=== PATIENT | female | born 1985 | race African-American/Black ===

== ENCOUNTER 2017-03-01 21:37 | Emergency (ER) | payer OTHER ==
[~2017-03-01] VITALS: Ht 160 cm; Wt 58.5 kg
[~2017-03-01 21:37] MED LIST: ALBUTEROL SULF8.5 GM INH; AZITHROMYCIN250 MG ORAL; CYCLOBENZAPRINE10 MG ORAL; IBUPROFEN600 MG ORAL; NAPROSYN500 M1 ORAL; NKM; PRENATAL ONE T1 EACH PO; PROMETHAZINE-C118 M1 ORAL
[2017-03-01 21:51] VITALS: BP 136/92
[2017-03-01] MEDS ORDERED: LACTULOSE20 GM/301 ORAL (22:20)
[2017-03-01 22:24] VITALS: BP 136/92
--- NOTE | 2017-03-04 10:08 | Emergency Room Report ---
History of Present Illness General Chief Complaint: Constipation Source: Patient Present Illness HPI Patient a 31-year-old female who presented after increased constipation. Patient reported having several days of decreased bowel movements. Patient taken Dulcolax with some bowel movement which was small. Patient denied any vomiting or severe abdominal pain. She had not been taking any narcotics or other medications. She denied any . She reported having intermittent symptoms similarly in the past. Allergies: Coded Allergies: No Known Allergies (Unverified , 08/22/12) Patient History Past Medical History: see triage record Last Menstrual Period: last week Reviewed Nursing Documentation: PMH: Agreed, PSxH: Agreed Nursing Documentation-PMH Past Medical History: No Stated History Hx Cardiac Problems: No Hx Hypertension: No Hx Pacemaker: No Hx Asthma: No Hx COPD: No Hx Diabetes: No Hx Cancer: No Hx Gastrointestinal Problems: No Hx Dialysis: No Hx Neurological Problems: No Hx Cerebrovascular Accident: No Hx Seizures: No Review of Systems All Other Systems: negative except mentioned in HPI Physical Exam Vital Signs Date Time Temp Pulse Resp B/P Pulse Ox O2 Delivery O2 Flow Rate FiO2 03/01/17 21:39 98.2 90 16 136/92 100 Room Air General Appearance: well appearing, no apparent distress, alert, GCS 15 Head: normocephalic, atraumatic ENT: hearing grossly normal, normal voice Neck: full range of motion, supple Respiratory: lungs clear, normal breath sounds, no respiratory distress, speaking full sentences Gastrointestinal: normal inspection, normal bowel sounds, non tender, soft Musculoskeletal: normal inspection, no calf tenderness Neurologic: normal inspection, alert, oriented x3, responsive, forensic accountant III-XII nml as tested, motor strength/tone normal, normal gait Psychiatric: mood/affect normal Skin: normal inspection, normal color, no rash Medical Decision Making Diagnostic Impression: Primary Impression: Constipation ER Course Patient presented for constipation. Differential diagnosis included was not limited to bowel obstruction, irritable bowel disease, inflammatory bowel disease, ovarian tumor among others. Patient's benign exam and does not appear to require any further imaging or laboratory testing at this time. The patient presented functional constipation. Patient was given prescription for lactulose. Patient does not have an acute abdomen. The patient was advised followup with her [facility]. She is also advised to return if she began having severe abdominal pain persistent vomiting or other concerns Last Vital Signs Date Time Temp Pulse Resp B/P Pulse Ox O2 Delivery O2 Flow Rate FiO2 03/01/17 22:24 98.2 84 16 136/92 100 Room Air Status: improved Disposition: HOME, SELF-CARE Condition: Stable Scripts Lactulose (LACTULOSE*) 20 Gm/30 Ml Solution 30 ML ORAL THREE TIMES A DAY for Constipation, #120 ML 0 Refills Prov: Kenji Lorenzo 03/01/17 Referrals: NON PHYSICIAN (PCP) Patient Instructions: Constipation, Adult Kenji Lorenzo Mar 04, 2017 10:08
== END 2017-03-01 22:24 | disposition home or self-care (01) ==
LOC: EMR 22:19
DX: K59.00 Constipation, unspecified (principal)
CPT/HCPCS: 99283

== ENCOUNTER 2017-03-18 15:51 | Emergency (ER) | payer OTHER ==
[~2017-03-18] VITALS: Ht 160 cm; Wt 56.7 kg
[~2017-03-18 15:51] MED LIST changes: +LACTULOSE20 GM/301 ORAL
[2017-03-18 16:12] VITALS: BP 139/98
[2017-03-18 16:33] LABS: APPEARANCE,URINE CLEAR; KETONES,URINE NEGATIVE (NEGATIVE); LEUKOCYTE ESTERASE ,URINE 3+ (NEGATIVE); NITRITE,URINE NEGATIVE (NEGATIVE); PH,URINE 6.5 (4.5-8.0); PROTEIN,URINE NEGATIVE (NEGATIVE); UROBILINOGEN,URINE NORMAL MG/DL (0.0-1.0)
[2017-03-18] MEDS ORDERED: Fleet's Mineral Oil Enema RECTAL ONE (16:45)
[2017-03-18 16:55] LABS: BACTERIA,URINE FEW /HPF; SQUAMOUS EPITHELIAL CELL,UR FEW /LPF (NONE/OCC)
--- NOTE | 2017-03-18 18:06 | Emergency Room Report ---
History of Present Illness General Chief Complaint: Female Urogenital Problems Source: Patient Present Illness HPI 31-year-old female presents emergency department complaining of episode of intermittent pelvic cramping followed by pinkish brown discharge with reported skin-like pieces. Patient states she is not due for her period until next week. Patient denies reports that she is currently taking oral contraceptive pills. Patient denies pain at this time and is concerned mainly with skinlike discharge that she is having. denies vaginal lesions, palpable lymph nodes, or hx of STI. Patient also reports continued constipation despite prior evaluation here for same problem. She states she has been having constipation x2 months reports straining bowel movements and states her last bowel movement was 4 days ago and reports stool was compact and dry in nature. Patient denies abdominal pain or tenderness denies blood in the stool or dark tarry stools. Denies nausea or vomiting. Denies CP, Palpitations, LOC, AMS, dizziness, Changes in Vision, Sensation, paresthesias, or a sudden severe headache. Allergies: Coded Allergies: No Known Allergies (Unverified , 08/22/12) Patient History Past Medical History: see triage record Past Surgical History: none Pertinent Family History: none Last Menstrual Period: February 22, 2017 Now: No Immunizations: UTD Reviewed Nursing Documentation: PMH: Agreed, PSxH: Agreed Nursing Documentation-PMH Past Medical History: No Stated History Hx Cardiac Problems: No Hx Hypertension: No Hx Pacemaker: No Hx Asthma: No Hx COPD: No Hx Diabetes: No Hx Cancer: No Hx Gastrointestinal Problems: No Hx Dialysis: No Hx Neurological Problems: No Hx Cerebrovascular Accident: No Hx Seizures: No Review of Systems All Other Systems: negative except mentioned in HPI Physical Exam Vital Signs Date Time Temp Pulse Resp B/P Pulse Ox O2 Delivery O2 Flow Rate FiO2 03/18/17 15:55 98.2 82 18 139/98 100 Room Air Sp02 EP Interpretation: reviewed, normal General Appearance: no apparent distress, alert, GCS 15, non-toxic Head: normocephalic, atraumatic Eyes: bilateral eye PERRL, bilateral eye normal inspection ENT: hearing grossly normal, normal pharynx, no angioedema, normal voice Neck: full range of motion, supple/symm/no masses Respiratory: chest non-tender, lungs clear, normal breath sounds, speaking full sentences Cardiovascular #1: regular rate, rhythm, no edema Gastrointestinal: normal bowel sounds, non tender, soft, non-distended, no guarding, no rebound, other - Negative Starlight signs, Negative MacBurney's sign , Negative Rosvigns Sign, Negative Psoas, No Peritoneal signs. Genitourinary: no CVA tenderness, adnexa normal, cervix normal, os closed, other - scant blood noted in the vaginal vault, os is closed. no CMT Musculoskeletal: back normal, gait/station normal, normal range of motion, non- tender Neurologic: alert, oriented x3, responsive, motor strength/tone normal, sensory intact, speech normal Psychiatric: judgement/insight normal, memory normal, mood/affect normal Skin: normal color, no rash, warm/dry, well hydrated Lymphatic: no adenopathy Medical Decision Making PA Attestation Dr. Ewing is my supervising Physician whom patient management has been discussed with. Diagnostic Impression: Primary Impression: Positive test Additional Impressions: Miscarriage, threatened, early Constipation Qualified Codes: K59.01 - Slow transit constipation UTI (urinary tract infection) Qualified Codes: N30.00 - Acute cystitis without hematuria ER Course 31-year-old female presents emergency department complaining of episode of intermittent pelvic cramping followed by pinkish brown discharge with reported skin-like pieces. Patient states she is not due for her period until next week. Patient denies reports that she is currently taking oral contraceptive pills. Patient denies pain at this time and is concerned mainly with skin-like discharge that she is having. denies vaginal lesions, palpable lymph nodes, or hx of STI. Patient also reports continued constipation despite prior evaluation here for same problem. She states she has been having constipation x2 months reports straining bowel movements and states her last bowel movement was 4 days ago and reports stool was compact and dry in nature. Patient denies abdominal pain or tenderness denies blood in the stool or dark tarry stools. Pt has had two previous pregnancies which resulted in normal vaginal delivery without complications, and did not require rho yasmin. Denies nausea or vomiting. Ddx considered but are not limited to: UTI, vaginal wall laceration, spotting during early , Spontaneous , Spontaneous , Constipation , obstruction, hemorrhoids. Vital signs: are WNL, pt. is afebrile Pelvic Exam: scant blood noted in the vaginal vault, os is closed. H&PE are most consistent with: spontaneous , and constipation. ORDERS: -Urine hcg- Positive -serum Hcg Quant: 315 -UA: consistent with UTI I do not feel US is warranted at this time, pt. currently does not have pain, no tenderness on physical exam. and according to LMP and serum quant of 315 IUP would be too early to see. this is most likely spontaneous . ED INTERVENTIONS: - Fleets Enema: pt. had bowel movement. in ED. - D/w pt. the results of Urine, blood work and PE findings: d/w pt. extensively that if tenderness or pain develops she should return to the ED for evaluation of possible ectopic . D/w pt. to follow up with OBGYN otherwise to return with worsening or new symptoms. DISCHARGE: At this time pt. is stable for d/c to home. Will provide printed patient care instructions, and any necessary prescriptions. Care plan and follow up instructions have been discussed with the patient prior to discharge. Labs Test 03/18/17 16:15 03/18/17 17:15 Urine Color Pale yellow Urine Appearance Clear Urine pH 6.5 (4.5-8.0) Urine Specific [place] 1.015 (1.005-1.035) Urine Protein Negative (NEGATIVE) Urine Glucose (UA) Negative (NEGATIVE) Urine Ketones Negative (NEGATIVE) Urine Occult Blood 3+ (NEGATIVE) Urine Nitrite Negative (NEGATIVE) Urine Bilirubin Negative (NEGATIVE) Urine Urobilinogen Normal MG/DL (0.0-1.0) Urine Leukocyte Esterase 3+ (NEGATIVE) Urine RBC 2-4 /HPF (0 - 2) Urine WBC 5-10 /HPF (0 - 2) Urine Squamous Epithelial Cells Few /LPF (NONE/OCC) Urine Bacteria Few /HPF (NONE) Urine HCG, Qualitative Positive Human Chorionic Gonadotropin, Quant 315 mIU/mL Last Vital Signs Date Time Temp Pulse Resp B/P Pulse Ox O2 Delivery O2 Flow Rate FiO2 03/18/17 16:12 98.2 68 18 139/98 100 Room Air Disposition: HOME, SELF-CARE Condition: Stable Scripts Nitrofurantoin Monohyd/M-Cryst* (MACROBID 100 MG*) 100 Mg Capsule 100 MG ORAL EVERY 12 HOURS for 5 Days, #10 CAP Prov: Nikki Milligan P.Leighton 03/18/17 Na Phos,M-B/Na Phos,Di-Ba* (FLEET ENEMA*) 133 Ml Enema 133 ML RECTAL DAILY for 2 Days, #133 ML 0 Refills Prov: Nikki Milligan 03/18/17 Acetaminophen* (TYLENOL EXTRA STRENGTH*) 500 Mg Tablet 500 MG ORAL Q6H, #20 TAB 0 Refills Prov: Nikki Milligan 03/18/17 Docusate Sodium* (COLACE*) 100 Mg Capsule 100 MG ORAL THREE TIMES A DAY for 30 Days, #30 CAP 3 Refills Prov: Nikki Milligan 03/18/17 Lactulose (LACTULOSE*) 20 Gm/30 Ml Solution 30 ML ORAL TID, #133 ML 0 Refills Prov: Nikki Milligan 03/18/17 Referrals: [facility],REFERRING (PCP) Patient Instructions: Constipation, Adult, Miscarriage, [id number] Additional Instructions: Take medications as directed. Follow up with PCP in 3-5 days Return sooner to ED if new symptoms occur, or current symptoms become worse IF you start having lower abdominal tenderness/pain return immediately to ED to assess for possible ectopic . - Please note that this Emergency Department Report was dictated using LightArrowleather polisher technology software, occasionally this can lead to erroneous entry secondary to interpretation by the dictation equipment. Nikki Milligan Mar 18, 2017 18:06
[2017-03-18] MEDS ORDERED: LACTULOSE20 GM/301 ORAL ×2 (18:10→18:39)
[2017-03-18] MEDS ORDERED: TYLENOL EXTRA500 MG ORAL ×2 (18:10→18:39)
[2017-03-18] MEDS ORDERED: FLEET ENEMA133 ML RECTAL ×2 (18:10→18:39)
[2017-03-18] MEDS ORDERED: COLACE100 MG ORAL ×2 (18:10→18:39)
[2017-03-18] MEDS ORDERED: NITROFURANTOIN100 M2 ORAL ×2 (18:16→18:39)
[2017-03-18 18:30] VITALS: BP 131/88
[2017-03-18 18:35] VITALS: BP 131/88
== END 2017-03-18 18:38 | disposition home or self-care (01) ==
LOC: EMR 17:30
DX: R10.2 Pelvic and perineal pain (principal); Z32.01 Encounter for pregnancy test, result positive; O20.0 Threatened abortion; N39.0 Urinary tract infection, site not specified
CPT/HCPCS: 36415; 81003; 81025; 84702; 99284

== ENCOUNTER 2017-07-13 19:51 | Emergency (ER) | payer MEDICAID, OTHER ==
[~2017-07-13] VITALS: Ht 160 cm; Wt 56.7 kg
[~2017-07-13 19:51] MED LIST changes: +COLACE100 MG ORAL; +FLEET ENEMA133 ML RECTAL; +NITROFURANTOIN100 M2 ORAL; +TYLENOL EXTRA500 MG ORAL
[2017-07-13] MEDS ORDERED: CYCLOBENZAPRINE10 MG ORAL (20:11)
[2017-07-13] MEDS ORDERED: TRAMADOL HCL50 MG ORAL (20:11)
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
[2017-07-13 20:24] VITALS: BP 160/98
[2017-07-13 20:26] VITALS: BP 148/80
== END 2017-07-13 20:26 | disposition home or self-care (01) ==
LOC: EMR 20:16
DX: M54.5 Low back pain (principal); M25.552 Pain in left hip; V43.52XA Car driver injured in collision with other type car in traffic accident, initial encounter; Y92.414 Local residential or business street as the place of occurrence of the external cause
CPT/HCPCS: 99283

== ENCOUNTER 2018-07-04 14:33 | Emergency (ER) | payer BC, MEDICAID ==
[~2018-07-04] VITALS: Ht 160 cm; Wt 56.7 kg
[~2018-07-04 14:33] MED LIST changes: +TRAMADOL HCL50 MG ORAL
[2018-07-04] MEDS ORDERED: IBUPROFEN600 MG ORAL ×2 (15:42→15:50)
[2018-07-04 15:58] VITALS: BP 134/82
--- NOTE | 2018-07-04 16:00 | Diagnostic Imaging Report ---
EXAM: XR Right Ankle Complete, 3 or More Views CLINICAL HISTORY: PAIN TECHNIQUE: Frontal, lateral and oblique views of the right ankle. COMPARISON: No relevant prior studies available. FINDINGS: Bones/joints: Unremarkable. No visible displaced ankle fracture or dislocation. Ankle mortise and talar dome appear unremarkable. Visualized joint spaces appear unremarkable. Soft tissues: Unremarkable. No radiodense foreign bodies. No soft tissue gas lucencies. IMPRESSION: Unremarkable right ankle x-rays.
--- NOTE | 2018-07-04 21:22 | Emergency Room Report ---
History of Present Illness General Chief Complaint: Lower Extremity Injury Source: Patient (JOVANNY CARDOZA) Present Illness HPI The patient is a 32 yo F presenting for R ankle pain after she states she slipped and fell while at [employer] today. She states that the floor was wet at the time. She denies hitting her head or LOC. Pain of the R ankle is 6/10 dull ache and does not radiate. Worse with movement. She denies previous injury to the area. She denies numbness. (JOVANNY CARDOZA) Allergies: Coded Allergies: No Known Allergies (Unverified , 08/22/12) Patient History Past Medical History: see triage record Pertinent Family History: none Last Menstrual Period: 2 weeks ago Now: No Reviewed Nursing Documentation: PMH: Agreed; PSxH: Agreed (JOVANNY CARDOZA) Nursing Documentation-PMH Past Medical History: No Stated History Hx Cardiac Problems: No Hx Hypertension: No Hx Pacemaker: No Hx Asthma: No Hx COPD: No Hx Diabetes: No Hx Cancer: No Hx Gastrointestinal Problems: No Hx Dialysis: No Hx Neurological Problems: No Hx Cerebrovascular Accident: No Hx Seizures: No (JOVANNY CARDOZA) Review of Systems All Other Systems: negative except mentioned in HPI (JOVANNY CARDOZA) Physical Exam Vital Signs Date Time Temp Pulse Resp B/P (MAP) Pulse Ox O2 Delivery O2 Flow Rate FiO2 07/04/18 14:53 98.4 86 14 135/88 98 Room Air 98.4 Sp02 EP Interpretation: reviewed, normal General Appearance: no apparent distress, alert, GCS 15, non-toxic Head: normocephalic, atraumatic Musculoskeletal: back normal, normal range of motion, no calf tenderness, swelling - Mild R lateral ankle, tender - R lateral ankle Neurologic: alert, oriented x3, responsive, motor strength/tone normal, sensory intact, speech normal Psychiatric: judgement/insight normal, memory normal, mood/affect normal, no suicidal/homicidal ideation Skin: normal color, no rash, warm/dry, well hydrated (JOVANNY CARDOZA) Procedures Splinting Splinting : Consent: Verbal Location: R ankle Pre-Made Type: PHILLIP wrap Pre-Proc Neuro Vasc Exam: normal Post-Proc Neuro Vasc Exam: normal Patient Tolerated: Well Complications: None (JOVANNY CARDOZA) Medical Decision Making PA Attestation Dr. Villegas is my supervising physician. Patient management was discussed with my supervising physician (JOVANNY CARDOZA) Diagnostic Impression: Primary Impression: Right ankle sprain Qualified Codes: S93.401A - Sprain of unspecified ligament of right ankle, initial encounter ER Course The patient is a 32 yo F presenting for R ankle pain after she states she slipped and fell while at [employer] today. Physical exam: Vitals within normal limits. No apparent distress R ankle: There is tenderness to palpation and edema over the lateral malleolus. Limited active range of motion. Sensation intact to light touch. X-ray of the ankle is unremarkable R ankle placed in PHILLIP wrap and the patient is provided crutches. ER precautions are given. Patient given prescription for Motrin and will follow up with primary care physician. (JOVANNY CARDOZA) Other X-Ray Diagnostic Results Other X-Ray Diagnostic Results : X-Ray ordered: R ankle # of Views/Limited Vs Complete: 3 View Indication: Pain EP Interpretation: Yes PA Xray: Interpretation reviewed, by supervising MD, and agrees with findings. Interpretation: no dislocation, no soft tissue swelling, no fractures Impression: No acute disease Electronically Signed by: Jovanny Cardoza PA-C (JOVANNY CARDOZA) Other X-Ray Diagnostic Results : Electronically Signed by: Phani documentation reviewed by me and is accurate, Bob Villegas MD. (Bob Villegas M.D.) Last Vital Signs Date Time Temp Pulse Resp B/P (MAP) Pulse Ox O2 Delivery O2 Flow Rate FiO2 07/04/18 15:58 98.4 85 14 134/82 99 Room Air 209.1 Status: improved (JOVANNY CARDOZA) Disposition: HOME, SELF-CARE Condition: Improved Scripts Ibuprofen* (MOTRIN*) 600 Mg Tablet 600 MG ORAL Q8H PRN for For Pain, #30 TAB 0 Refills Prov: JOVANNY CARDOZA 07/04/18 Referrals: [facility],REFERRING NOT CHOSEN [facility],REFERRING (PCP) Patient Instructions: Ankle Sprain Additional Instructions: I discussed my findings with the patient. All questions and concerns have been answered. Treatment and medication compliance have been addressed. I advised the patient that they need to follow up with PMD in 3-5 days. Return to ED if pain remains or worsens, numbness or tingling occurs, new rash is noticed, fever is noticed, or if needed for any reason. Patient verbalized understanding of discharge instructions. JOVANNY CARDOZA Jul 04, 2018 21:22 Bob Villegas M.D. Jul 05, 2018 02:58
== END 2018-07-04 15:58 | disposition home or self-care (01) ==
LOC: EMR 15:30
DX: S93.401A Sprain of unspecified ligament of right ankle, initial encounter (principal); W01.0XXA Fall on same level from slipping, tripping and stumbling without subsequent striking against object, initial encounter; Y93.89 Activity, other specified; Y92.512 Supermarket, store or market as the place of occurrence of the external cause
CPT/HCPCS: 99283